=== PATIENT | male | born 1965 | race Two or more races ===

== ENCOUNTER 2021-02-18 02:59 | Emergency (ER) | payer OTHER ==
[~2021-02-18] VITALS: Ht 165.1 cm; Wt 70.3 kg
[2021-02-18] MEDS ORDERED: cloNIDine HCL 0.1 MG TAB PO ONE ×2 (03:15→04:30)
[2021-02-18 05:53] VITALS: BP 185/93
== END 2021-02-18 05:54 ==
LOC: ER 02:59
DX: I10 Essential (primary) hypertension (principal)

== ENCOUNTER 2021-02-23 17:36 | Emergency (ER) | payer OTHER ==
[~2021-02-23] VITALS: Ht 165.1 cm; Wt 72.6 kg
[2021-02-23 17:41] VITALS: BP 149/92
[2021-02-23] MEDS ORDERED: LIDOCAINE 1% HCL (LOCAL ANESTH.) INJ 20ML MDV IJ ONE (19:45)
== END 2021-02-23 20:08 | disposition home or self-care (01) ==
LOC: ER 17:36
DX: S01.81XA Laceration without foreign body of other part of head, initial encounter (principal); I10 Essential (primary) hypertension; E11.9 Type 2 diabetes mellitus without complications; W20.8XXA Other cause of strike by thrown, projected or falling object, initial encounter; Y93.89 Activity, other specified; Y92.89 Other specified places as the place of occurrence of the external cause; Y99.8 Other external cause status
CPT/HCPCS: 12011; 70450; 99284; J2001

== ENCOUNTER 2022-01-10 23:25 | Emergency (ER) | payer MEDICAID, OTHER ==
[~2022-01-10] VITALS: Ht 157.5 cm; Wt 59.9 kg
[2022-01-10 23:37] VITALS: BP 169/93
== END 2022-01-11 06:21 | disposition left against medical advice (07) ==
LOC: ER 23:25
DX: S00.86XA Insect bite (nonvenomous) of other part of head, initial encounter (principal); Z53.21 Procedure and treatment not carried out due to patient leaving prior to being seen by health care provider; W57.XXXA Bitten or stung by nonvenomous insect and other nonvenomous arthropods, initial encounter; Y93.89 Activity, other specified; Y92.89 Other specified places as the place of occurrence of the external cause; Y99.8 Other external cause status

== ENCOUNTER 2023-03-30 17:00 | Emergency (ER) | payer MEDICAID ==
[~2023-03-30] VITALS: Ht 154.9 cm; Wt 66.0 kg
[2023-03-30] MEDS ORDERED: CLIN300C70 PO (18:45)
[2023-03-30] MEDS ORDERED: CLON0.1T PO (18:45)
[2023-03-30] MEDS ORDERED: IBUP-1454 PO (18:45)
[2023-03-30] MEDS ORDERED: CLINDAMYCIN HCL 150 MG CAP PO ONE (18:45)
[2023-03-30] MEDS ORDERED: ACE3T PO (18:45)
[2023-03-30] MEDS ORDERED: KETOROLAC TROMETH 60MG/2ML VIAL IM ONE (18:45)
[2023-03-30] MEDS ORDERED: INSLANTI SC (18:45)
[2023-03-30] MEDS ORDERED: HYDROcodone-ACET 5/325MG TAB PO ONE (18:45)
[2023-03-30] MEDS ORDERED: cefTRIAXone SOD 1,000 MG VL IM ONE (18:45)
[2023-03-30 21:30] VITALS: PULSE 99
[2023-03-30 21:32] VITALS: BP 97/57; PULSE 99; RESP 16; TEMP 98.1; O2SAT 100
== END 2023-03-30 21:09 | disposition home or self-care (01) ==
LOC: ER 17:00
DX: L02.11 Cutaneous abscess of neck (principal); I10 Essential (primary) hypertension; E11.9 Type 2 diabetes mellitus without complications; F14.90 Cocaine use, unspecified, uncomplicated; Z41.8 Encounter for other procedures for purposes other than remedying health state; Z79.4 Long term (current) use of insulin; Z79.899 Other long term (current) drug therapy
CPT/HCPCS: 10060; 96372; 99284; J0696; J1885

== ENCOUNTER 2024-05-16 18:47 | Emergency (ER) | payer MEDICAID ==
[~2024-05-16] VITALS: Ht 157.5 cm; Wt 131.4 kg
[~2024-05-16 18:47] MED LIST: ACE3T PO; BACDST PO; CEPH500C PO; CLIN1CAP70 PO; CLON0.1T PO; IBUP-1454 PO; IBUP-1455 PO; INSLANTI SC; KETO2CRE4 EX
[2024-05-16 18:58] VITALS: BP 157/104; RESP 18; O2SAT 99
[2024-05-16 19:05] VITALS: PULSE 89
--- NOTE | 2024-05-16 19:08 | ED.PDOC ---
SOB-HPI HPI Comments 58-year-old male came to ER shortness of breath. Patient does have history of hypertension, diabetes, congestive heart failure, methamphetamine abuse. States for the past week, he has been having productive cough, associated with shortness of breath, and left lateral chest wall pain whenever he coughs profusely. Noted also worsening bipedal edema. Upon arrival, blood pressure was 151/104 mm Hg, and was saturating 99% room air Chief Complaint: Shortness of Breath Time Seen by MD: 19:07 Primary Care Provider: CLARENCE Gar notes: Nurses Notes Information Source: Patient Mode of Arrival: Ambulatory Severity: Moderate Timing: Hours Duration: Since onset Context: At Rest PE Risk Factors: None History of: CHF Prehospital treatment: None Modifying Factors: Nothing Associated Signs and Symptoms: Cough, Chest Pain Quality: Sharp Radiation: No Radiation Location: Chest (L) If cough with SOB: Productive Past Medical History PAST MEDICAL HISTORY: CHF, CKF, DM, HTN Surgical History: Denies all surgeries Family History Family History: Reviewed,noncontributory to illness Social History Smoker: Non-Smoker Alcohol: Denies ETOH Use Drugs: Methamphetamine Lives In: Home Constitutional: reports: chills; denies: diaphoresis, fatigue, fever, malaise, sweats, weakness, others EENTM: denies: blurred vision, double vision, ear bleeding, ear discharge, ear drainage, ear pain, ear ringing, eye pain, eye redness, hearing loss, mouth pain, mouth swelling, nasal discharge, nose bleeding, nose congestion, nose pain, photophobia, tearing, throat pain, throat swelling, voice changes, others Respiratory: reports: cough, SOB at rest; denies: hemoptysis, orthopnea, shortness of breath, SOB with excertion, stridor, wheezing, others Cardiovascular: reports: chest pain, edema; denies: dizzy spells, diaphoresis, Dyspnea on exertion, irregular heart beat, left arm pain, lightheadedness, palpitations, PND, syncope, others Gastrointestinal: reports: diarrhea; denies: abdomen distended, abdominal pain, blood streaked bowels, constipated, dysphagia, difficulty swallowing, hematemesis, melena, nausea, poor appetite, poor fluid intake, rectal bleeding, rectal pain, vomiting, others Genitourinary: denies: burning, dysuria, flank pain, frequency, hematuria, incontinence, penile discharge, penile sore, pain, testicle pain, testicle swelling, urgency, others Neurological: denies: dizziness, fainting, headache, left sided numbness, left sided weakness, numbness, paresthesia, pre-existing deficit, right sided numbness, right sided weakness, seizure, speech problems, tingling, tremors, weakness, others Musculoskeletal: denies: back pain, gout, joint pain, joint swelling, muscle pain, muscle stiffness, neck pain, others Integumetry: denies: bruises, change in color, change in hair/nails, dryness, laceration, lesions, lumps, rash, wounds, others Allergic/Immunocompromised: denies: Difficulty Healing, Frequent Infections, Hives, Itching, others Hematologic/Lymphatic: denies: anemia, blood clots, easy bleeding, easy bruising, swollen glands, others Endocrine: denies: excessive hunger, excessive sweating, excessive thirst, excessive urination, flushing, intolerance to cold, intolerance to heat, unexplained weight gain, unexplained weight loss, others Psychiatric: denies: anxiety, bipolar disorder, depression, hopeless, panic disorder, schizophrenia, sleepless, suicidal, others Physical Exam General Appearance: No Apparent Distress, Normal HEENT: Normal ENT Inspection, Pharynx Normal, TMs Normal Neck: Full Range of Motion, Non-Tender, Normal, Normal Inspection Respiratory: Chest Non-Tender, Lungs Clear, No Accessory Muscle Use, No Respiratory Distress, Normal Breath Sounds Cardiovascular: No Edema, No JVD, No Murmur, No Gallop, Normal Peripheral Pulses, Regular Rate/Rhythm Breast Exam: Deferred Gastrointestinal: No Organomegaly, Non Tender, No Pulsatile Mass, Normal Bowel Sounds, Soft Genitalia: Deferred Pelvic: Deferred Rectal: Deferred Extremities: No calf tenderness, Normal capillary refill, Normal inspection, Normal range of motion, Non-tender, No pedal edema Musculoskeletal : Apperance: Normal Neurologic: Alert, 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 Was a procedure done?: No Differential Dx Differential Diagnosis: Asthma, Bronchitis, CHF, COPD, Myocardial infarction, Panic Attack, Pneumonia, Respiratory Distress X-Ray, Labs, Meds, VS Vital Signs Date Time Temp Pulse Resp B/P (MAP) Pulse Ox O2 Delivery O2 Flow Rate FiO2 05/16/24 19:05 89 05/16/24 18:58 98.7 93 18 157/104 (121) 99 Lab Test 05/16/24 22:42 05/16/24 22:26 05/16/24 21:11 05/16/24 19:27 Range/Units Influenza Type A Antigen Pending Influenza Type B Antigen Pending SARS-CoV-2 Antigen (Rapid) Pending Troponin I High Sensitivity 44 43 39 </=54 ng/L White Blood Count 6.4 4.4-10.8 10^3/uL Red Blood Count 4.11 L 4.5-5.90 10^6/uL Hemoglobin 12.3 L 13.5-17.5 g/dL Hematocrit 37.8 L 41.0-53.0 % Mean Corpuscular Volume 92.1 80.0-100.0 fL Mean Corpuscular Hemoglobin 29.8 28.0-32.0 pg Mean Corpuscular Hemoglobin Concent 32.4 32.0-36.0 g/dL Red Cell Distribution Width 18.4 H 11.8-14.3 % Platelet Count 359 140-450 10^3/uL Mean Platelet Volume 7.9 6.9-10.8 fL Neutrophils (%) (Auto) 73.7 37.0-80.0 % Lymphocytes (%) (Auto) 14.8 10.0-50.0 % Monocytes (%) (Auto) 7.6 0.0-12.0 % Eosinophils (%) (Auto) 3.1 0.0-7.0 % Basophils (%) (Auto) 0.8 0.0-2.0 % Neutrophils # (Auto) 4.7 1.6-8.6 10 ^3/uL Lymphocytes # (Auto) 1.0 0.4-5.4 10 ^3/uL Monocytes # (Auto) 0.5 0-1.3 10 ^3/uL Eosinophils # (Auto) 0.2 0-0.8 10 ^3/uL Basophils # (Auto) 0.1 0-0.2 10 ^3/uL Nucleated Red Blood Cells 0.0 % Sodium Level 141 136-145 mmol/L Potassium Level 4.1 3.5-5.1 mmol/L Chloride Level 111 H 98-107 mmol/L Carbon Dioxide Level 22 20-31 mmol/L Anion Gap 8 5-15 Blood Urea Nitrogen 22 9-23 mg/dL Creatinine 1.41 H 0.700-1.30 mg/dL Glomerular Filtration Rate Calc 58 >90 mL/min BUN/Creatinine Ratio 15.6 10.0-20.0 Serum Glucose 158 H 74-106 mg/dL Calcium Level 9.3 8.7-10.4 mg/dL B-Type Natriuretic Peptide > 5000.00 0-100 pg/mL EXAM: XY CHEST TWO VIEWS ROUTINE CLINICAL HISTORY: sob TECHNIQUE: Frontal and lateral views of the chest WID: COMPARISON: None FINDINGS: Lines and tubes: None Chest: Cardiomegaly with mild pulmonary vascular congestion. Calcified plaque projects over the aortic arch. There are bilateral pleural effusions and bibasilar mixed opacities greater on the right. There is no pneumothorax. The osseous structures are grossly intact. IMPRESSION: CHF/volume overload with cardiomegaly, pulmonary vascular congestion, and [id number]-ndoa-left pleural effusions and bibasilar mixed opacities likely atelectasis or pneumonia Time of 1ST Reevaluation: 19:04 Reevaluation 1ST: Unchanged Patient Education/Counseling: Diagnosis, Treatment Family Education/Counseling: No Family Present Departure 1 Departure Time of Disposition: 23:39 (Patient presented with shortness of breath that was concerning for possible STEMI, ACS, PE, Pneumonia, Muscle Strain, COPD, Dissection, Acute on Chronic systolic and Diastolic dysfunction. Data: 1. I ordered and reviewed the result of at least 3 labs including a CBC, BMP, and Troponin. 2. I independently interpreted the following tests: EKG which shows sinus arrhthmia and Chest X-ray which shows cardiomegaly.Risk:This patient has a high risk of morbidity due to further diagnostic testing or treatment and may suffer from an acute cardiac or respiratory disorder but is most consitent with an acute chf exacerbation. Patient should be admitted for further workup and pos sible expert consultation. ) Impression: Primary Impression: Acute combined systolic and diastolic congestive heart failure Additional Impressions: Shortness of breath Volume overload Qualified Codes: E87.70 - Fluid overload, unspecified Disposition: ADMITTED INPATIENT Admit to: Med Surg Condition: Serious Critical Care Note Critical Care Time?: Yes Critical care comment: Acute shortness of breath Authorized and Performed by: Fauzia Moore MD Total critical care time: Approximately 32 minutes Due to a high probability of clinically significant, life threatening deterioration, the patient required my highest level of preparedness to intervene emergently and I personally spent this critical care time directly and personally managing the patient. This critical care time included obtaining a history; examining the patient; pulse oximetry; ordering and review of studies; arranging urgent treatment with development of a management plan; evaluation of patient's response to treatment; frequent reassessment; and, discussions with other providers. This critical care time was performed to assess and manage the high probability of imminent, life-threatening deterioration that could result in multi-organ failure. It was exclusive of separately billable procedures and treating other patients and teaching time. Please see my other sections and the rest of the note for further information on patient assessment and treatment. Stability Stability form required: No Heart Score Heart Score: Heart Score Response (Comments) Value History Slightly Suspicious 0 EKG Normal 0 Age 45-64 1 Risk Factors >3 or Hx ASHD 2 Troponin Normal limit 0 Total 3 I personally scribed for FAUZIA MOORE MD ([email or web address]) on 05/16/24 at 19:08. Electronically submitted by Timothy Handy ([email or web address]). I personally scribed for FAUZIA MOORE MD ([email or web address]) on 05/16/24 at 19:27. Electronically submitted by Timothy Handy ([email or web address]). I personally scribed for FAUZIA MOORE MD ([email or web address]) on 05/16/24 at 20:22. Electronically submitted by Timothy Handy ([email or web address]). FAUZIA MOORE MD May 16, 2024 19:08
[2024-05-16 19:56] LABS: Basophils # (auto) 0.1 10 ^3/uL (0-0.2); Basophils % (auto) 0.8 % (0.0-2.0); Eosinophils # (auto) 0.2 10 ^3/uL (0-0.8); Eosinophils % (auto) 3.1 % (0.0-7.0); Hematocrit 37.8 % (41.0-53.0); Hemoglobin 12.3 g/dL (13.5-17.5); Lymphocytes % (auto) 14.8 % (10.0-50.0); Mean Corpuscular Hemoglobin 29.8 pg (28.0-32.0); Mean Corpuscular Hgb Conc. 32.4 g/dL (32.0-36.0); Mean Corpuscular Volume 92.1 fL (80.0-100.0); Monocytes # (auto) 0.5 10 ^3/uL (0-1.3); Monocytes % (auto) 7.6 % (0.0-12.0); Neutrophils # (auto) 4.7 10 ^3/uL (1.6-8.6); Neutrophils % (auto) 73.7 % (37.0-80.0); Platelet Count (auto) 359 10^3/uL (140-450); Red Blood Cells 4.11 10^6/uL (4.5-5.90); Red Cell Distribution Width 18.4 % (11.8-14.3); White Blood Cell 6.4 10^3/uL (4.4-10.8)
[2024-05-16 20:04] LABS: Potassium 4.1 mmol/L (3.5-5.1); Sodium 141 mmol/L (136-145)
[2024-05-16 20:05] LABS: Anion Gap 8 (5-15); Carbon Dioxide 22 mmol/L (20-31)
--- NOTE | 2024-05-16 20:05 | DVH ---
EXAM: XY CHEST TWO VIEWS ROUTINE CLINICAL HISTORY: sob TECHNIQUE: Frontal and lateral views of the chest WID: COMPARISON: None FINDINGS: Lines and tubes: None Chest: Cardiomegaly with mild pulmonary vascular congestion. Calcified plaque projects over the aortic arch . There are bilateral pleural effusions and bibasilar mixed opacities greater on the right. There is n o pneumothorax. The osseous structures are grossly intact. IMPRESSION: CHF/volume overload with cardiomegaly, pulmonary vascular congestion, and wqkrm-[id number]-mnud-left ple ural effusions and bibasilar mixed opacities likely atelectasis or pneumonia
[2024-05-16 20:06] LABS: Calcium 9.3 mg/dL (8.7-10.4)
[2024-05-16 20:07] LABS: Chloride 111 mmol/L (98-107)
[2024-05-16 20:11] LABS: BUN/Creatinine Ratio 15.6 (10.0-20.0); Blood Urea Nitrogen 22 mg/dL (9-23); Glucose 158 mg/dL (74-106)
[2024-05-16] MEDS ORDERED: FUROSEMIDE 40 MG/4 ML VIAL IV ONE (23:45)
[2024-05-17 00:11] LABS: Rapid Influenza A Negative (Negative); Rapid Influenza B Negative (Negative)
[2024-05-17 00:25] LABS: COVID19 ANTIGEN SOFIA FIA NEGATIVE (NEGATIVE)
--- NOTE | 2024-05-19 09:02 | ECG ---
[facility] Test Date: 2024-05-16 Test Time: 19:05:41 Pat Name: SLAVA CAMPOS Department: er Room: Gender: M Squirrel Man: dr CANELA: 1965 Requested By: FAUZIA MOORE Order Number: [id number] Reading MD: Measurements Intervals Goff Rate: 89 P: 75 WV: 160 QRS: 149 QRSD: 160 T: -45 QT: 426 QTc: 519 Interpretive Statements Sinus rhythm Multiform ventricular premature complexes RBBB and LPFB Please click the below link to view image of tracing.
== END 2024-05-16 23:58 | disposition left against medical advice (07) ==
LOC: ER 18:47
DX: I11.0 Hypertensive heart disease with heart failure (principal); I50.41 Acute combined systolic (congestive) and diastolic (congestive) heart failure; R06.02 Shortness of breath; E11.9 Type 2 diabetes mellitus without complications; F15.90 Other stimulant use, unspecified, uncomplicated
CPT/HCPCS: 36415; 71046; 80048; 83880; 84484; 85025; 87426; 87804; 93005

== ENCOUNTER 2024-05-17 11:39 | Inpatient (IN) | payer MEDICAID ==
[~2024-05-17] VITALS: Ht 165.1 cm; Wt 72.4 kg
--- NOTE | 2024-05-17 13:00 | ED.PDOC ---
SOB-HPI HPI Comments A 58 YEAR OLD MALE PRESENTS TO THE ED WITH COMPLAINT OF COUGH. PATIENT STATES HE HAS BEEN EXPERIENCING A COUGH, CONGESTION, DIFFICULTY BREATHING, AND PAIN IN HIS LEFT RIB WHEN COUGHING FOR THE PAST 1 WEEK, WITH WORSENING SYMPTOMS OVER THE LAST 3 DAYS. PATIENT NOTES LAYING DOWN AND COUGHING INCREASES HIS DYSPNEA. PATIENT REPORTS HE CAME TO THIS ED FOR THE SAME COMPLAINT YESTERDAY WHERE A CHEST X RAY AND LABS WERE DONE WHICH REVEALED FINDINGS CONSISTENT WITH ACUTE CHF EXACERBATION, WAS GOING TO BE ADMITTED, BUT THE PATIENT SIGNED OUT AMA. PATIENT IN HIS AGREEING TO BE ADMITTED TODAY HERE IN THE ED. PATIENT ADMITS TO USING COCAINE, METHAMPHETAMINE, AND MARIJUANA. PATIENT DENIES FEVER, CHILLS, CHEST PAIN, ABDOMINAL PAIN, NAUSEA, VOMITING, HEADACHE, OR OTHER COMPLAINTS. NO OTHER SYMPTOMS OR MODIFYING FACTORS AT THIS TIME. PATIENT IS ALERT, ORIENTED X 4, AND HAS STEADY GAIT. Chief Complaint: Cough Time Seen by MD: 11:43 Primary Care Provider: CLARENCE Gar notes: Nurses Notes, Medications, Allergies Information Source: Patient Mode of Arrival: Ambulatory Severity: Moderate Timing: Days Duration: Since onset, Days Context: Spontaneous Onset PE Risk Factors: None History of: CHF Prehospital treatment: None Modifying Factors: Nothing Associated Signs and Symptoms: Cough, Leg Swelling If cough with SOB: Productive Past Medical History PAST MEDICAL HISTORY: CHF, CKF, DM, HTN Surgical History: Denies all surgeries Family History Family History: Reviewed,noncontributory to illness Social History Smoker: Cigarettes Alcohol: Denies ETOH Use Drugs: Cocaine, Marijuana, Methamphetamine Lives In: Home Constitutional: denies: chills, diaphoresis, fatigue, fever, malaise, sweats, weakness, others EENTM: denies: blurred vision, double vision, ear bleeding, ear discharge, ear drainage, ear pain, ear ringing, eye pain, eye redness, hearing loss, mouth pain, mouth swelling, nasal discharge, nose bleeding, nose congestion, nose pain, photophobia, tearing, throat pain, throat swelling, voice changes, others Respiratory: reports: cough, shortness of breath; denies: hemoptysis, orthopnea, SOB at rest, SOB with excertion, stridor, wheezing, others Cardiovascular: denies: chest pain, dizzy spells, diaphoresis, Dyspnea on exertion, edema, irregular heart beat, left arm pain, lightheadedness, palpitations, PND, syncope, others Gastrointestinal: denies: abdomen distended, abdominal pain, blood streaked bowels, constipated, diarrhea, dysphagia, difficulty swallowing, hematemesis, melena, nausea, poor appetite, poor fluid intake, rectal bleeding, rectal pain, vomiting, others Genitourinary: denies: burning, dysuria, flank pain, frequency, hematuria, incontinence, penile discharge, penile sore, pain, testicle pain, testicle swelling, urgency, others Neurological: denies: dizziness, fainting, headache, left sided numbness, left sided weakness, numbness, paresthesia, pre-existing deficit, right sided numbness, right sided weakness, seizure, speech problems, tingling, tremors, weakness, others Musculoskeletal: reports: joint swelling, others (RIB PAIN); denies: back pain, gout, joint pain, muscle pain, muscle stiffness, neck pain Integumetry: denies: bruises, change in color, change in hair/nails, dryness, laceration, lesions, lumps, rash, wounds, others Allergic/Immunocompromised: denies: Difficulty Healing, Frequent Infections, Hives, Itching, others Hematologic/Lymphatic: denies: anemia, blood clots, easy bleeding, easy bruising, swollen glands, others Endocrine: denies: excessive hunger, excessive sweating, excessive thirst, excessive urination, flushing, intolerance to cold, intolerance to heat, unexplained weight gain, unexplained weight loss, others Psychiatric: denies: anxiety, bipolar disorder, depression, hopeless, panic dis order, schizophrenia, sleepless, suicidal, others All Other Systems: Reviewed and Negative Physical Exam General Appearance: No Apparent Distress, Normal HEENT: Normal ENT Inspection, PERRL/EOMI, Pharynx Normal, TMs Normal Neck: Full Range of Motion, Non-Tender, Normal, Normal Inspection Respiratory: Chest Non-Tender, Decreased Breath Sounds, No Accessory Muscle Use, No Respiratory Distress, Rhonchi (AND CRACKLES) Cardiovascular: No Edema, No JVD, No Murmur, No Gallop, Normal Peripheral Puls es, Regular Rate/Rhythm Breast Exam: Deferred Gastrointestinal: No Organomegaly, Non Tender, No Pulsatile Mass, Normal Bowel Sounds, Soft Genitalia: Deferred Pelvic: Deferred Rectal: Deferred Extremities: Leg edema (MILD ), No calf tenderness, Normal capillary refill, Normal range of motion, Pedal edema (2+PEDAL EDEMA BILATERAL ANKLE AND FEET. 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 Was a procedure done?: No Differential Dx Differential Diagnosis: Bronchitis, CHF, Pneumonia, Sinusitis, Allergic Rhinitis, Otitis Media, Pharyngitis, URI X-Ray, Labs, Meds, VS Vital Signs Date Time Temp Pulse Resp B/P (MAP) Pulse Ox O2 Delivery O2 Flow Rate FiO2 05/17/24 13:29 153/77 05/17/24 13:26 88 05/17/24 13:22 81 05/17/24 12:45 86 18 100 Room Air 05/17/24 12:45 97.4 86 18 153/77 (102) 100 97.4 05/17/24 12:12 97.4 86 18 153/77 (102) 100 Lab Test 05/17/24 13:00 05/17/24 12:52 Range/Units White Blood Count 6.5 4.4-10.8 10^3/uL Red Blood Count 3.70 L 4.5-5.90 10^6/uL Hemoglobin 11.3 L 13.5-17.5 g/dL Hematocrit 33.9 #L 41.0-53.0 % Mean Corpuscular Volume 91.5 80.0-100.0 fL Mean Corpuscular Hemoglobin 30.4 28.0-32.0 pg Mean Corpuscular Hemoglobin Concent 33.3 32.0-36.0 g/dL Red Cell Distribution Width 17.5 H 11.8-14.3 % Platelet Count 367 140-450 10^3/uL Mean Platelet Volume 7.6 6.9-10.8 fL Neutrophils (%) (Auto) 72.7 37.0-80.0 % Lymphocytes (%) (Auto) 16.3 10.0-50.0 % Monocytes (%) (Auto) 7.5 0.0-12.0 % Eosinophils (%) (Auto) 2.8 0.0-7.0 % Basophils (%) (Auto) 0.7 0.0-2.0 % Neutrophils # (Auto) 4.7 1.6-8.6 10 ^3/uL Lymphocytes # (Auto) 1.1 0.4-5.4 10 ^3/uL Monocytes # (Auto) 0.5 0-1.3 10 ^3/uL Eosinophils # (Auto) 0.2 0-0.8 10 ^3/uL Basophils # (Auto) 0 0-0.2 10 ^3/uL Nucleated Red Blood Cells 0.0 % Sodium Level 142 136-145 mmol/L Potassium Level 4.2 3.5-5.1 mmol/L Chloride Level 111 H 98-107 mmol/L Carbon Dioxide Level 24 20-31 mmol/L Anion Gap 7 5-15 Blood Urea Nitrogen 29 H 9-23 mg/dL Creatinine 1.44 H 0.700-1.30 mg/dL Glomerular Filtration Rate Calc 56 >90 mL/min BUN/Creatinine Ratio 20.1 H 10.0-20.0 Serum Glucose 112 H 74-106 mg/dL Lactic Acid Level 0.7 0.4-2.0 mmol/L Calcium Level 9.2 8.7-10.4 mg/dL Troponin I High Sensitivity 45 </=54 ng/L B-Type Natriuretic Peptide > 5000.00 0-100 pg/mL Urine Color Colorless Yellow Urine Clarity Clear Clear Urine pH 5.5 5.0-9.0 Urine Specific [place] 1.013 1.001-1.035 Urine Protein 1+ H Negative Urine Ketones Negative Negative Urine Blood Trace H Negative /uL Urine Nitrite Negative Negative Urine Bilirubin Negative Negative Urine Urobilinogen Normal Negative mg/dL Urine Leukocyte Esterase Negative Negative /uL Urine RBC <1 0 - 3 /hpf Urine WBC <1 0 - 3 /hpf Urine Squamous Epithelial Cells Few <5 /hpf Urine Bacteria None seen None Seen /hpf Urine Glucose Normal Normal mg/dL Urine Opiates Screen Neg NEGATIVE Urine Fentanyl Screen Neg NEGATIVE Urine Barbiturates Screen Neg NEGATIVE Urine Phencyclidine Screen Neg NEGATIVE Urine Amphetamines Screen Pos NEGATIVE Urine Benzodiazepines Screen Neg NEGATIVE Urine Cocaine Screen Neg NEGATIVE Urine Cannabinoids Screen Pos NEGATIVE PATIENT: SLAVA CAMPOS JRACCT: [id number]: [id number] : 1965 LOC: ER ROOM / BED: / AGE / SEX: 58 / M ADM STATUS: REG ER SERVICE 01 ORDERING PHYSICIAN: FAUZIA MOORE MD PROCEDURE(s): CXR2 - CHEST TWO VIEWS ROUTINE REASON: sob ORDER NUMBER(s): [id number], ACCESSION NUMBER(s): [id number] EXAM: XY CHEST TWO VIEWS ROUTINE CLINICAL HISTORY: sob TECHNIQUE: Frontal and lateral views of the chest WID: COMPARISON: None FINDINGS: Lines and tubes: None Chest: Cardiomegaly with mild pulmonary vascular congestion. Calcified plaque projects over the aortic arch. There are bilateral pleural effusions and bibasilar mixed opacities greater on the right. There is no pneumothorax. The osseous structures are grossly intact. IMPRESSION: CHF/volume overload with cardiomegaly, pulmonary vascular congestion, and jflfz-[id number]-rfpt-left pleural effusions and bibasilar mixed opacities likely atelectasis or pneumonia ATED BY: DEVEN CRUZ MD DICTATED DATE/TIME: 05/16/242002 SIGNED BY: DEVEN CRUZ MD SIGNED DATE/TIME: 05/16/242002 CC: X-Ray, Labs, Meds, VS Comment EXTERNAL NOTES: NONE LABS ORDERED: CBC, BMP, TROPONIN, UDS, BLOOD CULTURE, LACTIC ACID W/ REFLEX, BNP REVIEWED AND INTERPRETED RESULTS: BNP > 5000, CANNABIS POSITIVE, AMPHETAMINE POSITIVE IMAGING ORDERED: NONE INDEPENDENT HISTORIANS: NONE TREATMENTS ORDERED: LASIX 40MG IV PATIENT'S CASE AND RESULTS HAVE BEEN DISCUSSED WITH THE ED ATTENDING PHYSICIAN AND THEY AGREE WITH MY PLAN OF CARE. AFTER REVIEWING THE PATIENT'S LAB RESULTS AND CHEST X-RAY FROM YESTERDAY, THE PATIENT'S RESULTS APPEARED TO SHOW ACUTE CHF EXACERBATION. UPON MY PHYSICAL EXAMINATION, THE PATIENT HAD DIMINISHED BREATH SOUNDS AND CRACKLES HEARD UPON AUSCULTATION, AND HAD BILATERAL LOWER EXTREMITY SWELLING NOTED, BUT WAS IN NO ACUTE RESPIRATORY DISTRESS AT THIS TIME. DIFFERENTIAL DIAGNOSIS INCLUDES, ACUTE CHF EXACERBATION, DYSPNEA, URI, BRONCHITIS, DRUG ABUSE. DUE TO THE PATIENT'S CHEST X-RAY RESULTS FROM YESTERDAY AND HIS LAB RESULTS, I HAVE DETERMINED THE PATIENT NEEDS TO BE ADMITTED TO THIS HOSPITAL FOR FURTHER TREATMENT AND EVALUATION OF HIS CHF. THE ON-CALL ADMITTING PHYSICIAN WILL BE CONTACTED FOR ADMISSION OF THIS PATIENT. Time of 1ST Reevaluation: 15:00 Reevaluation 1ST: Unchanged Patient Education/Counseling: Diagnosis, Treatment Family Education/Counseling: Diagnosis, Treatment Departure 1 Departure Time of Disposition: 15:00 Impression: Primary Impression: Acute exacerbation of CHF (congestive heart failure) Qualified Codes: I50.43 - Acute on chronic combined systolic (congestive) and diastolic (congestive) heart failure Additional Impression: Pleural effusion Disposition: ADMITTED INPATIENT Admit to: Tele Condition: Serious Critical Care Note Critical Care Time?: No Stability Stability form required: Yes Unstable for transfer: Requires medication, ED Physician Assesment, Possible rapid decline Heart Score Heart Score: Heart Score Response (Comments) Value History Slightly Suspicious 0 EKG Normal 0 Age 45-64 1 Risk Factors 1 or 2 risk factors 1 Troponin Normal limit 0 Total 2 I personally scribed for RICHAR RAMIREZ ([email or web address]) on 05/17/24 at 13:00. Electronically submitted by Ck Lovell (Revl). I personally scribed for RICHAR RAMIREZ ([email or web address]) on 05/17/24 at 13:26. Electronically submitted by Ck Lovell (Revl). I personally scribed for RICHAR RAMIREZ ([email or web address]) on 05/17/24 at 15:54. Electronically submitted by Ck Lovell (Revl). RICHAR RAMIREZ May 17, 2024 13:00
[2024-05-17] MEDS: FUROSEMIDE 40 MG/4 ML VIAL IV ONE (13:29)
[2024-05-17 13:32] LABS: Basophils # (auto) 0 10 ^3/uL (0-0.2); Basophils % (auto) 0.7 % (0.0-2.0); Eosinophils # (auto) 0.2 10 ^3/uL (0-0.8); Eosinophils % (auto) 2.8 % (0.0-7.0); Hematocrit 33.9 % (41.0-53.0); Hemoglobin 11.3 g/dL (13.5-17.5); Lymphocytes # (auto) 1.1 10 ^3/uL (0.4-5.4); Lymphocytes % (auto) 16.3 % (10.0-50.0); Mean Corpuscular Hemoglobin 30.4 pg (28.0-32.0); Mean Corpuscular Hgb Conc. 33.3 g/dL (32.0-36.0); Mean Corpuscular Volume 91.5 fL (80.0-100.0); Monocytes # (auto) 0.5 10 ^3/uL (0-1.3); Monocytes % (auto) 7.5 % (0.0-12.0); Neutrophils # (auto) 4.7 10 ^3/uL (1.6-8.6); Neutrophils % (auto) 72.7 % (37.0-80.0); Platelet Count (auto) 367 10^3/uL (140-450); Red Cell Distribution Width 17.5 % (11.8-14.3); White Blood Cell 6.5 10^3/uL (4.4-10.8)
[2024-05-17 13:45] LABS: Anion Gap 7 (5-15); Calcium 9.2 mg/dL (8.7-10.4); Carbon Dioxide 24 mmol/L (20-31); Potassium 4.2 mmol/L (3.5-5.1); Sodium 142 mmol/L (136-145)
[2024-05-17 13:51] LABS: BUN/Creatinine Ratio 20.1 (10.0-20.0)
[2024-05-17 13:54] LABS: Chloride 111 mmol/L (98-107); Glucose 112 mg/dL (74-106)
[2024-05-17 13:55] LABS: Blood Urea Nitrogen 29 mg/dL (9-23)
[2024-05-17 13:58] LABS: Urine Bacteria None Seen /hpf (None Seen)
[2024-05-17 14:12] LABS: Urine Blood TRACE /uL (Negative); Urine Clarity Clear (Clear); Urine Color Colorless (Yellow); Urine Protein, UAD 1+ (Negative); Urine Specific Gravity 1.013 (1.001-1.035); Urine Urobilinogen Normal (Negative); Urine WBC <1 /hpf (0 - 3); Urine pH 5.5 (5.0-9.0)
[2024-05-17 14:21] LABS: Amphetamine Screen, Urine Pos (NEGATIVE); Barbiturate Scree,Urine Neg (NEGATIVE); Benzodiazephine Screen, Urine Neg (NEGATIVE); Cocaine Screen, Urine Neg (NEGATIVE)
[2024-05-17 14:22] LABS: Cannabinoid Screen, Urine Pos (NEGATIVE); Opiate Scree,Urine Neg (NEGATIVE); Phencyclidine Screen, Urine Neg (NEGATIVE)
[2024-05-17] MEDS ORDERED: IBUPROFEN 600 MG TAB PO PRN (15:30)
[2024-05-17] MEDS ORDERED: ACETAMINOPHEN 325 MG TAB PO PRN (15:30)
[2024-05-17] MEDS ORDERED: ONDANSETRON HCL 4 MG/2 ML VIAL IV PRN (15:30)
[2024-05-17] MEDS ORDERED: MAALOX PLUS or MAALOX 30 ML PO PRN (15:30)
[2024-05-17] MEDS ORDERED: MORPHINE SULFATE 4 MG/ML SYR/VIAL IV PRN (15:30)
[2024-05-17] MEDS ORDERED: MORPHINE SULFATE INJ 2 MG/ml SYRG IV PRN (15:30)
[2024-05-17] MEDS ORDERED: NITROGLYCERIN 0.4 MG SL TAB SL PRN ×2 (15:30)
--- NOTE | 2024-05-17 16:37 | DVHHP2 ---
History of Present Illness Reason for Visit: shortness of breath History of Present Illness 58-year-old male with a past medical history of CHF CKD diabetes hypertension comes to the ED for evaluation of shortness of breath difficulty breathing patient was here yesterday for the same evaluation was shown to have signs of severe cardiac overload and fluid accumulation patient was for admission yesterday and refused left AMA patient at that point in time admitted that he was using cocaine methamphetamine and marijuana LFT continue his drug use and now is here today for his symptoms continuing to get worse at this point in time patient was re-evaluated in the ED and replaced for admission at this point in t arvind patient was going to be for admission and evaluation inpatient setting however we will monitor to make sure the patient tries not to elope this time or AMA Cardiovascular: CHF Renal/: Chronic renal failure Drugs: Cocaine, Marijuana, Other (Methamphetamine) Review of Systems Constitutional: Yes: Weakness; No: Fever, Chills, Sweats, Malaise, Other Eyes: No: Pain, Vision change, Conjunctivae inflammation, Eyelid inflammation, Other, Redness ENT: No: Ear pain, Ear discharge, Nose pain, Nose discharge, Nose congestion, Mouth pain, Mouth swelling, Throat pain, Throat swelling, Other Respiratory: Cough, Shortness of breath; No: Dry, SOB with excertion, Wheezing, Hemoptysis, Pleuritic Pain, Sputum, Wheezing, Other Cardiovascular: Chest Pain, Palpitations; No: Orthopnea, Paroxysmal Noc. Dyspnea, Edema, Lt Headedness, Other Gastrointestinal: No: Nausea, Vomiting, Abdominal Pain, Diarrhea, Constipation, Melena, Hematochezia, Other Genitourinary: No Dysuria, No Frequency, No Incontinence, No Hematuria, No Retention, No Other Musculoskeletal: No: other, neck pain, shoulder pain, arm pain, back pain, hand pain, leg pain, foot pain Skin: No: Rash, Lesions, Jaundice, Bruising, Other Neurological: No: Weakness, Numbness, Incoordination, Change in speech, Confusion, Seizures, Other Allergies: Coded Allergies: NO KNOWN ALLERGIES (Unverified , 01/10/22) Exam Vital Signs Vital Signs Date Time Temp Pulse Resp B/P (MAP) Pulse Ox O2 Delivery O2 Flow Rate FiO2 05/17/24 13:29 153/77 05/17/24 13:26 88 05/17/24 12:45 18 100 Room Air 05/17/24 12:45 97.4 97.4 General Appearance: Alert, Oriented X3, Cooperative, moderate distress HEENT: Atraumatic, PERRLA, EOMI Respiratory: Clear to auscultation, Normal air movement Cardiovascular: Regular rate, Normal S1, Normal S2 Abdominal: Normal bowel sounds, Soft, No tenderness Extremities: No clubbing, No cyanosis, No edema (Bilateral edema) Skin: No rashes, No breakdown Neuro: Normal gait, Normal speech Psych/Mental Status: Mood NL Labs/Xrays Labs Test 05/17/24 13:00 05/17/24 12:52 Range/Units White Blood Count 6.5 4.4-10.8 10^3/uL Red Blood Count 3.70 L 4.5-5.90 10^6/uL Hemoglobin 11.3 L 13.5-17.5 g/dL Hematocrit 33.9 #L 41.0-53.0 % Mean Corpuscular Volume 91.5 80.0-100.0 fL Mean Corpuscular Hemoglobin 30.4 28.0-32.0 pg Mean Corpuscular Hemoglobin Concent 33.3 32.0-36.0 g/dL Red Cell Distribution Width 17.5 H 11.8-14.3 % Platelet Count 367 140-450 10^3/uL Mean Platelet Volume 7.6 6.9-10.8 fL Neutrophils (%) (Auto) 72.7 37.0-80.0 % Lymphocytes (%) (Auto) 16.3 10.0-50.0 % Monocytes (%) (Auto) 7.5 0.0-12.0 % Eosinophils (%) (Auto) 2.8 0.0-7.0 % Basophils (%) (Auto) 0.7 0.0-2.0 % Neutrophils # (Auto) 4.7 1.6-8.6 10 ^3/uL Lymphocytes # (Auto) 1.1 0.4-5.4 10 ^3/uL Monocytes # (Auto) 0.5 0-1.3 10 ^3/uL Eosinophils # (Auto) 0.2 0-0.8 10 ^3/uL Basophils # (Auto) 0 0-0.2 10 ^3/uL Nucleated Red Blood Cells 0.0 % Sodium Level 142 136-145 mmol/L Potassium Level 4.2 3.5-5.1 mmol/L Chloride Level 111 H 98-107 mmol/L Carbon Dioxide Level 24 20-31 mmol/L Anion Gap 7 5-15 Blood Urea Nitrogen 29 H 9-23 mg/dL Creatinine 1.44 H 0.700-1.30 mg/dL Glomerular Filtration Rate Calc 56 >90 mL/min BUN/Creatinine Ratio 20.1 H 10.0-20.0 Serum Glucose 112 H 74-106 mg/dL Lactic Acid Level 0.7 0.4-2.0 mmol/L Calcium Level 9.2 8.7-10.4 mg/dL Troponin I High Sensitivity 45 </=54 ng/L B-Type Natriuretic Peptide > 5000.00 0-100 pg/mL Urine Color Colorless Yellow Urine Clarity Clear Clear Urine pH 5.5 5.0-9.0 Urine Specific [place] 1.013 1.001-1.035 Urine Protein 1+ H Negative Urine Ketones Negative Negative Urine Blood Trace H Negative /uL Urine Nitrite Negative Negative Urine Bilirubin Negative Negative Urine Urobilinogen Normal Negative mg/dL Urine Leukocyte Esterase Negative Negative /uL Urine RBC <1 0 - 3 /hpf Urine WBC <1 0 - 3 /hpf Urine Squamous Epithelial Cells Few <5 /hpf Urine Bacteria None seen None Seen /hpf Urine Glucose Normal Normal mg/dL Urine Opiates Screen Neg NEGATIVE Urine Fentanyl Screen Neg NEGATIVE Urine Barbiturates Screen Neg NEGATIVE Urine Phencyclidine Screen Neg NEGATIVE Urine Amphetamines Screen Pos NEGATIVE Urine Benzodiazepines Screen Neg NEGATIVE Urine Cocaine Screen Neg NEGATIVE Urine Cannabinoids Screen Pos NEGATIVE Assessment/Plan Assessment/Plan Admit to [facility] Acute on chronic CHF exacerbation History of CKD noted History of diabetes with uncontrolled type 2 blood sugar History of hypertension Patient will be placed on chest pain protocol and evaluation management and treatment for CHF Diuretics b.i.d. IV Monitor for fluid output Repeat a.m. labs P.r.n. breathing treatments for the shortness of breath Place patient on sliding scale No history of an echo Echo ordered for evaluation of systolic versus diastolic versus combined issues with a heart Patient for inpatient admission management and continued care Plan discussed with: Patient My Orders Orders - NAHOMY CEDENO MD Procedure Category Date Status Time Acetaminophen/Codeine PHA 05/17/24 In Process Tablet (Tylenol W/ 15:30 Clonidine Hcl Tablet PHA 05/18/24 Logged (Catapres Tablet) 10:00 Ibuprofen Tablet PHA 05/17/24 Logged (Motrin Tablet) 15:30 Insulin Lantus PHA 05/17/24 Logged (Glargine) (Lantus) 18:00 Admit ADMIT 05/17/24 Transmitted 15:17 Code Status CODE 05/17/24 Transmitted 15:17 Cardiac DIET 05/17/24 Transmitted Diet-2gna,Lofat,Lochol Dinner Aspirin Tablet PHA 05/18/24 Logged 10:00 Atorvastatin (Lipitor) PHA 05/17/24 Logged 22:00 Carvedilol Tablet PHA 05/17/24 Logged (Coreg Tablet) 22:00 Lisinopril Tablet PHA 05/18/24 Logged (Zestril Tablet) 10:00 Acetaminophen Tablet PHA 05/17/24 Logged (Tylenol Tablet) 15:30 Zolpidem Tartrate PHA 05/17/24 Logged (Ambien) 15:30 Lorazepam Tablet PHA 05/17/24 Logged (Ativan Tablet) 15:30 Docusate Sodium PHA 05/18/24 Logged Capsule (Colace 10:00 Complete Blood Count LAB 05/18/24 Verified 04:00 Basic Metabolic Panel LAB 05/18/24 Verified 04:00 Echo 2d Mode Cardiac US 05/17/24 Logged DOP 15:17 Nitroglycerin PHA 05/17/24 Logged Sublingual (Ntrostat 15:30 Ondansetron Hcl [facility] 05/17/24 Logged (Zofran) 15:30 Electrocardigram EKG 05/17/24 Logged 15:17 Alum & Mag PHA 05/17/24 Logged Hydrox-Simethicone 15:30 Troponin-I Hs LAB 05/17/24 Logged 15:17 Cardiac [facility] 05/17/24 In Process Rehabilitation - Outpa Stat Ekg For Chest [facility] 05/17/24 In Process Pain 15:17 Notify Md Of Changes MARTHA 05/17/24 In Process From Base 15:17 Domestic Violence Counselor For MARTHA 05/17/24 In Process 24 Hours 15:17 Emergency Dysrhythmia [facility] 05/17/24 In Process Protocol 15:17 Rhythm Strips Once MARTHA 05/17/24 In Process Every Shift 15:17 Oxygen By Nasal RT 05/17/24 Transmitted Cannula 15:17 Morphine Sulfate PHA 05/17/24 Logged Injection 15:30 Furosemide Injection PHA 05/17/24 Logged (Lasix Injection) 22:00 Problem List: (1) Acute exacerbation of CHF (congestive heart failure) (2) Pleural effusion (3) Acute combined systolic and diastolic congestive heart failure (4) Dyspnea (5) Shortness of breath (6) Hypertension (7) Diabetes mellitus Date of Service: May 17, 2024 Billing Provider: NAHOMY CEDENO MD Common Visit Codes: 13632-[id number] INP/OBS CARE (HIGH) NAHOMY CEDENO MD May 17, 2024 16:37
[2024-05-17] MEDS ORDERED: INSULIN LANTUS (GLARGINE) 1 /0.01ml (100units/ml) SC SCH (18:00)
[2024-05-17] MEDS: FUROSEMIDE 40 MG/4 ML VIAL IV SCH (18:10)
[2024-05-17 19:55] VITALS: PULSE 84; RESP 15; O2SAT 96
[2024-05-17] MEDS: ATORVASTATIN 20 MG TAB PO SCH (21:48)
[2024-05-17] MEDS: CARVEDILOL 3.125 MG TAB PO SCH (21:51)
[2024-05-17] MEDS ORDERED: ZOLPIDEM TARTRATE 5 MG TAB PO PRN (22:00)
[2024-05-18] MEDS: ACCU-CHEK COMFORT CURVE STRIP VI SCH (00:07)
[2024-05-18] MEDS: INSULIN LANTUS (GLARGINE) 1 /0.01ml (100units/ml) SC SCH (00:08)
[2024-05-18] MEDS: ACETAMINOPHEN/CODEINE#3 (300/30mg) TAB PO PRN (00:17)
[2024-05-18] MEDS: LORazepam 0.5 MG TAB PO PRN (03:54)
[2024-05-18 08:29] LABS: Basophils # (auto) 0.1 10 ^3/uL (0-0.2); Basophils % (auto) 0.7 % (0.0-2.0); Eosinophils # (auto) 0.3 10 ^3/uL (0-0.8); Eosinophils % (auto) 3.5 % (0.0-7.0); Hematocrit 35.4 % (41.0-53.0); Lymphocytes # (auto) 1.3 10 ^3/uL (0.4-5.4); Lymphocytes % (auto) 17.7 % (10.0-50.0); Mean Corpuscular Hemoglobin 30.7 pg (28.0-32.0); Mean Corpuscular Hgb Conc. 33.9 g/dL (32.0-36.0); Mean Corpuscular Volume 90.5 fL (80.0-100.0); Monocytes # (auto) 0.6 10 ^3/uL (0-1.3); Monocytes % (auto) 8.8 % (0.0-12.0); Neutrophils # (auto) 5.1 10 ^3/uL (1.6-8.6); Neutrophils % (auto) 69.3 % (37.0-80.0); Nucleated Red Blood Cells % 0.1 %; Platelet Count (auto) 390 10^3/uL (140-450); Red Blood Cells 3.91 10^6/uL (4.5-5.90); Red Cell Distribution Width 18.1 % (11.8-14.3); White Blood Cell 7.3 10^3/uL (4.4-10.8)
[2024-05-18 08:35] LABS: Sodium 142 mmol/L (136-145)
[2024-05-18 08:36] LABS: Anion Gap 7 (5-15); Carbon Dioxide 27 mmol/L (20-31)
[2024-05-18 08:37] LABS: Calcium 9.5 mg/dL (8.7-10.4)
[2024-05-18 08:41] LABS: Glucose 81 mg/dL (74-106)
[2024-05-18 08:42] LABS: BUN/Creatinine Ratio 19.3 (10.0-20.0)
[2024-05-18 08:52] LABS: Blood Urea Nitrogen 26 mg/dL (9-23); Chloride 108 mmol/L (98-107)
[2024-05-18 09:17] LABS: INR 1.14 (0.9-1.15); Partial Thromboplastin Time 28.2 SEC (24.5-34.5)
[2024-05-18 09:25] LABS: Albumin 3.8 g/dL (3.2-4.8); Bilirubin, Direct 0.2 mg/dL (<0.3); Blood Alcohol 3.2 mg/dL (<10)
[2024-05-18 09:26] LABS: Bilirubin, Total 0.6 mg/dL (0.2-1.0); Total Protein 6.3 g/dL (5.7-8.2)
[2024-05-18] MEDS: LISINOPRIL 5 MG TAB PO SCH (10:09)
[2024-05-18] MEDS: ASPirin 81 mg TAB PO SCH (10:09)
[2024-05-18] MEDS: cloNIDine HCL 0.1 MG TAB PO SCH (10:10)
[2024-05-18] MEDS ORDERED: MORPHINE SULFATE INJ 2 MG/ml SYRG IV PRN (10:15)
--- NOTE | 2024-05-18 10:17 | DVHPNRES ---
Progress Note Date Seen: May 18, 2024 Resident Creating Document: RACHAEL GALEAS RESIDENT Medical Necessity Reason Pt with a Central, PICC or Fol: No Subjective Review of Systems SLAVA CAMPOS JR is a 58-year-old male with a PMH of CHF, CKD, type 2 DM, HTN presented to the ED with the chief complaints of shortness of breath and lower extremity swelling. Patient reported that he visited to ED on Sunday with the similar complaints, advised admission due to fluid overload and CHF exacerbation but patient denied and left AMA. Yesterday his symptoms got worsened which brought him to visit ED again. Patient reported he has been having shortness of breath and cough associated with sharp left-sided chest pain which is nonradiating, intermittent associated with cough, no relieving factors and he recently diagnosed with CHF. Reported he underwent I and D of back abscess in [place] recently. Patient admits consumption of cocaine, amphetamines, marijuana for long time. On my assessment patient denies fever, nausea, vomiting, diaphoresis, abdominal pain, diarrhea and other acute associated symptoms PMH: CHF, CKD, type 2 DM, HTN PSH: I and D for bag abscess Family history: Father (78s) and mother (50) of heart issues Social history: Lives with the family. Consumes cocaine, amphetamines, marijuana but denies alcohol or the tobacco abuse Allergies: No known allergies Patient was seen and examined at the bedside. Patient reported improvement in shortness of breath and leg swelling. Patient is currently diuresing with the Lasix 40 mg IV b.i.d. today morning patient denied his Lasix, advised risks versus benefits of taking Lasix and patient agreed to take. Ordered echocardiogram, pending. Monitor strict I&Os, fluid restriction. Pending cardiology consultation. Objective vital signs Vital Sign Date Time Temp Pulse Resp B/P (MAP) Pulse Ox O2 Delivery O2 Flow Rate FiO2 05/18/24 10:13 98.0 83 15 153/90 (111) 95 98.0 05/18/24 08:51 Room Air* 0 21 medications Current Medications Medications Dose Ordered Sig/Zach Route Start Time Stop Time Status Last Admin Dose Admin Acetaminophen/ Codeine Phosphate 1 tab Q8HP PRN PO 05/17/24 15:30 05/18/24 00:17 1 TAB Clonidine HCl 0.1 mg DAILY PO 05/18/24 10:00 05/18/24 10:10 0.1 MG Ibuprofen 600 mg Q6HP PRN PO 05/17/24 15:30 Hold Aspirin 81 mg DAILY PO 05/18/24 10:00 05/18/24 10:09 81 MG Atorvastatin Calcium 80 mg HS PO 05/17/24 22:00 05/17/24 21:48 80 MG Carvedilol 6.25 mg Q12HR PO 05/17/24 22:00 05/18/24 10:10 6.25 MG Lisinopril 5 mg DAILY PO 05/18/24 10:00 05/18/24 10:09 5 MG Morphine Sulfate 2 mg Q30MP PRN IV 05/17/24 15:30 UNV Acetaminophen 650 mg Q6HP PRN PO 05/17/24 15:30 Zolpidem Tartrate 5 mg QHSP PRN PO 05/17/24 22:00 Lorazepam 0.5 mg Q6HP PRN PO 05/17/24 15:30 05/18/24 03:54 0.5 MG Docusate Sodium 100 mg DAILY PO 05/18/24 10:00 Nitroglycerin 0.4 mg Q5MINP PRN SL 05/17/24 15:30 Ondansetron HCl 4 mg Q4HP PRN IV 05/17/24 15:30 Al Hydrox/Mg Hydrox/Simethicone 30 ml Q6HPRN PRN PO 05/17/24 15:30 Nitroglycerin 0.4 mg Q5MINP PRN SL 05/17/24 15:30 UNV Morphine Sulfate 2 mg Q30M PRN IV 05/17/24 15:30 Furosemide 40 mg BIDD IV 05/17/24 18:00 05/17/24 18:10 40 MG Diagnostic Test (Pha) 1 strip Q6HR 05/18/24 00:00 05/18/24 06:31 1 STRIP Insulin Glargine 15 units QPM SC 05/17/24 23:45 05/18/24 00:08 15 UNITS Morphine Sulfate 1 mg Q4HP PRN IV 05/18/24 10:15 UNV Examination General Appearance: Alert, Oriented X3, Cooperative, Not in acute distress HEENT: Atraumatic, Mucous membranes moist/pink Respiratory: Decreased air entry bilaterally with scattered crackles Cardiovascular: Regular rate, Normal S1, Normal S2, No murmurs Abdominal: Active bowel sounds, Soft, no distention, no tenderness Extremities: 2+ pitting edema BLE, Normal pulses, No tenderness Skin: post surgical wound on back near right scapular blade without signs of infection or inflammation Neuro: Normal speech, sensorimotor deficits none Psych/Mental Status: Mental status NL, Mood NL laboratory and microbiology Laboratory Tests 05/18/24 08:00 Test 05/18/24 08:00 Range/Units Serum Glucose 81 74-106 mg/dL Labs and/or images reviewed: Labs reviewed by me, Image(s) reviewed by me Problem List/Assessment/Plan Problem List/Assessment/Plan # acute on chronic systolic VS diastolic CHF - elevated BNP 5 K, monitor lab - currently on telemetry unit - currently on Coreg 6.25, clonidine, Lasix 40 mg IV b.i.d. - strict I&Os and fluid restriction - ordered echocardiogram, pending - consult cardiology for further evaluation # uncontrolled type 2 DM with the HbA1c 7.5 - continuously monitoring with Accu-Cheks - currently 50 units Lantus # JEFFREY likely VMN on CKD - Monitor lab for now - strict I&Os # polysubstance abuse disorder # cocaine, amphetamines, marijuana abuse disorder - UDS positive for amphetamines and marijuana - counseled regarding cessation for 18 minutes # uncontrolled hypertension - continuously monitor - resume home meds # status post I and D for back abscess POA -consulted Dr. Andrew Garza for antibiotic and culture if needed -per Dr. Garza patient completed his Bactrim course & no need of new cultures No VTE PPX Maalox Cardiac diet Reconciled home meds Goals of care discussed with the patient for 20 minutes: Full code status Case management discussed with Dr. Rosales, patient and nurse Plan discussed with: Patient, Other (Nurse) My Orders My Orders Orders - RACHAEL GALEAS RESIDENT Procedure Category Date Status Time Thyroid Stimulating LAB 05/18/24 In Process Hormone 08:35 Vitamin D, 25-Hydroxy LAB 05/18/24 In Process 08:35 Vitamin B12 LAB 05/18/24 In Process 08:35 Morphine Sulfate PHA 05/18/24 Logged Injection 10:15 * Wound Consult CONS 05/18/24 Transmitted * Cardiology Consult CONS 05/18/24 Transmitted 10:10 Addendum Addendum Addendum I was physically present for the chua portions of the service provided to patient by THE RESIDENT. I have reviewed the documentation, discussed the case with resident and agree with the resident's documentation except as noted. Also the patient's clinical case was discussed with the patient's nurse. This medical document was created using an electronic medical record system with computerized dictation system. Although this document has been carefully reviewed, there might still be some phonetic and typographical errors. These areas are purely typographical due to imperfections of the software programs, and do not reflect any compromise in the patient's medical care. Late signature. Date of Service: May 18, 2024 Billing Provider: ELISA ROSALES MD Common Visit Codes: [id number] INP/OBS CARE(HIGH) Secondary Visit Codes: 39998-[id number] CHNG SMOKING >10MIN (Counseled on polysubstance use cessation for 18 minutes), [id number] CARE PLAN 30 MINUTES (20 minutes ) RACHAEL GALEAS RESIDENT May 18, 2024 10:17 ELISA ROSALES MD May 19, 2024 12:38
[2024-05-18] MEDS: DOCUSATE SOD 100 MG CAP PO SCH (10:18)
[2024-05-18 20:53] VITALS: TEMP 97.8
[2024-05-19 01:30] VITALS: BP 129/63; PULSE 80; RESP 18; O2SAT 98
--- NOTE | 2024-05-19 09:14 | DVHDSRES ---
Discharge Summary Date of Admission Resident Creating Document: RACHAEL GALEAS RESIDENT May 17, 2024 at 15:17 Date of Discharge: May 19, 2024 Admitting Diagnosis shortness of breath and lower extremity swelling Labs/Diagnostic Data: Laboratory Results Test 05/19/24 00:07 05/18/24 08:00 05/17/24 16:22 05/17/24 13:00 POC Glucose 157 mg/dl (70-106) White Blood Count 7.3 10^3/uL (4.4-10.8) Red Blood Count 3.91 10^6/uL (4.5-5.90) Hemoglobin 12.0 g/dL (13.5-17.5) Hematocrit 35.4 % (41.0-53.0) Mean Corpuscular Volume 90.5 fL (80.0-100.0) Mean Corpuscular Hemoglobin 30.7 pg (28.0-32.0) Mean Corpuscular Hemoglobin Concent 33.9 g/dL (32.0-36.0) Red Cell Distribution Width 18.1 % (11.8-14.3) Platelet Count 390 10^3/uL (140-450) Mean Platelet Volume 7.6 fL (6.9-10.8) Neutrophils (%) (Auto) 69.3 % (37.0-80.0) Lymphocytes (%) (Auto) 17.7 % (10.0-50.0) Monocytes (%) (Auto) 8.8 % (0.0-12.0) Eosinophils (%) (Auto) 3.5 % (0.0-7.0) Basophils (%) (Auto) 0.7 % (0.0-2.0) Neutrophils # (Auto) 5.1 10 ^3/uL (1.6-8.6) Lymphocytes # (Auto) 1.3 10 ^3/uL (0.4-5.4) Monocytes # (Auto) 0.6 10 ^3/uL (0-1.3) Eosinophils # (Auto) 0.3 10 ^3/uL (0-0.8) Basophils # (Auto) 0.1 10 ^3/uL (0-0.2) Nucleated Red Blood Cells 0.1 % Prothrombin Time 12.0 sec (9.3-11.8) Prothrombin Time INR 1.14 (0.9-1.15) Activated Partial Thromboplast Time 28.2 SEC (24.5-34.5) Sodium Level 142 mmol/L (136-145) Potassium Level 4.0 mmol/L (3.5-5.1) Chloride Level 108 mmol/L (98-107) Carbon Dioxide Level 27 mmol/L (20-31) Anion Gap 7 (5-15) Blood Urea Nitrogen 26 mg/dL (9-23) Creatinine 1.35 mg/dL (0.700-1.30) Glomerular Filtration Rate Calc 61 mL/min (>90) BUN/Creatinine Ratio 19.3 (10.0-20.0) Serum Glucose 81 mg/dL (74-106) Hemoglobin A1c 7.5 % A1C (<5.7) Calcium Level 9.5 mg/dL (8.7-10.4) Magnesium Level 2.0 mg/dL (1.6-2.6) Total Bilirubin 0.6 mg/dL (0.2-1.0) Direct Bilirubin 0.2 mg/dL (<0.3) Aspartate Amino Transferase (AST) 29 U/L (13-40) Alanine Aminotransferase (ALT) 33 U/L (7-40) Alkaline Phosphatase 125 U/L (46-116) Total Protein 6.3 g/dL (5.7-8.2) Albumin 3.8 g/dL (3.2-4.8) Thyroid Stimulating Hormone (TSH) 3.71 uIU/mL (0.55-4.78) Plasma/Serum Blood Alcohol 3.2 mg/dL (<10) Troponin I High Sensitivity 45 ng/L (</=54) Lactic Acid Level 0.7 mmol/L (0.4-2.0) B-Type Natriuretic Peptide > 5000.00 pg/mL (0-100) Test 05/17/24 12:52 Urine Color Colorless (Yellow) Urine Clarity Clear (Clear) Urine pH 5.5 (5.0-9.0) Urine Specific [place] 1.013 (1.001-1.035) Urine Protein 1+ (Negative) Urine Ketones Negative (Negative) Urine Blood Trace /uL (Negative) Urine Nitrite Negative (Negative) Urine Bilirubin Negative (Negative) Urine Urobilinogen Normal mg/dL (Negative) Urine Leukocyte Esterase Negative /uL (Negative) Urine RBC <1 /hpf (0 - 3) Urine WBC <1 /hpf (0 - 3) Urine Squamous Epithelial Cells Few /hpf (<5) Urine Bacteria None seen /hpf (None Seen) Urine Glucose Normal mg/dL (Normal) Urine Opiates Screen Neg (NEGATIVE) Urine Fentanyl Screen Neg (NEGATIVE) Urine Barbiturates Screen Neg (NEGATIVE) Urine Phencyclidine Screen Neg (NEGATIVE) Urine Amphetamines Screen Pos (NEGATIVE) Urine Benzodiazepines Screen Neg (NEGATIVE) Urine Cocaine Screen Neg (NEGATIVE) Urine Cannabinoids Screen Pos (NEGATIVE) Other Laboratory Tests 05/18/24 08:00 Brief Hx & Hospital Course: SLAVA CAMPOS JR is a 58-year-old male with a PMH of CHF, CKD, type 2 DM, HTN presented to the ED with the chief complaints of shortness of breath and lower extremity swelling. Patient reported that he visited to ED on Sunday with the similar complaints, advised admission due to fluid overload and CHF exacerbation but patient denied and left AMA. Yesterday his symptoms got worsened which brought him to visit ED again. Patient reported he has been having shortness of breaths and cough associated with sharp left-sided chest pain which is nonradiating, intermittent associated with cough, no relieving factors and he recently diagnosed with CHF. Reported he underwent I and D of back abscess in [place] recently. Patient admits consumption of cocaine, amphetamines, marijuana for long time. On my assessment patient denies fever, nausea, vomiting, diaphoresis, abdominal pain, diarrhea and other acute associated symptoms. Patient required hospital admission for further evaluation and management shortness of breath CHF exacerbation. Continuously monitored on telemetry unit, given Coreg, clonidine, Lasix 40 mg IV b.i.d.. Patient was advised strict I&O was and fluid restriction. Ordered new echocardiogram and consult Cardiology for further evaluation which are pending. Controlled diabetes mellitus patient was continuously monitoring Accu-Cheks and given Lantus. Due to JEFFREY patient was continuously monitored labs. UDS was positive for amphetamines, marijuana, patient admitted taking consumption of cocaine, amphetamine, marijuana, counseled regarding cessation for more than 17 minutes. patient is still in treatment but want to leave AMA despite explaining risks versus benefits. Patient was advised to return ED if symptoms worse. Condition at Discharge: Undetermined Final Diagnosis/Problems List # acute on chronic systolic VS diastolic CHF # uncontrolled type 2 DM with the HbA1c 7.5 # Jeffrey likely VM on CKD # polysubstance abuse disorder # cocaine, amphetamines, marijuana abuse disorder # uncontrolled hypertension # status post I and D for back abscess POA Discharge Disposition: AMA Discharge Statement: "Patient was advised to return to the ER or call 911 if any headaches, dizziness, shortness of breath, chest pain, abdominal pain, bleeding, fevers, or worsening of medical condition. Patient was counseled about treatment plan, medications, possible side effects, patientverbalized understanding. All questions were answered to the best of my ability. This discharge took greater then 30 minutes in planning, reviewing documentation, counseling the patient, and discussing with other team members." ASSESSMENT ASSESSMENT Assessment Date of Service: May 19, 2024 Billing Provider: RILEY MCCLURE MD Common Visit Codes: 94519-UZG/OBS DISCH DAY <30MIN RACHAEL GALEAS RESIDENT May 19, 2024 09:14 RILEY MCCLURE MD May 19, 2024 20:13
--- NOTE | 2024-05-19 14:54 | ECG ---
[facility] Test Date: 2024-05-17 Test Time: 13:22:47 Pat Name: SLAVA CAMPOS Department: ER Room: [address] [place] [address] Gender: M Croze Cutter: DANY : 1965 Requested By: RICHAR RAMIREZ Order Number: [id number] Reading MD: Measurements Intervals [place] Rate: 81 P: 80 ND: 158 QRS: 133 QRSD: 154 T: -13 QT: 416 QTc: 483 Interpretive Statements Sinus rhythm RBBB and LPFB Abnrm T, consider ischemia, anterolateral lds Please click the below link to view image of tracing.
== END 2024-05-19 09:14 | disposition left against medical advice (07) | DRG 194 ==
LOC: ER 11:39 → TELE 15:17
PROVIDERS: ADMIT Hospitalist; ATTEND Hospitalist
DX: I13.0 Hypertensive heart and chronic kidney disease with heart failure and stage 1 through stage 4 chronic kidney disease, or unspecified chronic kidney disease (principal); N17.0 Acute kidney failure with tubular necrosis; E11.22 Type 2 diabetes mellitus with diabetic chronic kidney disease; I50.43 Acute on chronic combined systolic (congestive) and diastolic (congestive) heart failure; F12.10 Cannabis abuse, uncomplicated; F17.210 Nicotine dependence, cigarettes, uncomplicated; F15.10 Other stimulant abuse, uncomplicated; N18.9 Chronic kidney disease, unspecified
CPT/HCPCS: 36415; 80048; 80076; 80307; 80320; 81001; 82306; 82607; 82962; 83036; 83605; 83735; 83880; 84443; 84484; 85025; 85610; 85730; 93005; G0378; J1815